=== PATIENT | male | born 1970 | race Caucasian/White ===

== ENCOUNTER 2019-08-28 15:24 | Emergency (ER) | payer OTHER ==
[~2019-08-28] VITALS: Ht 175.3 cm; Wt 100.0 kg
[~2019-08-28 15:24] MED LIST: ESCI10TA PO; PROP40TA7 PO
[2019-08-28 15:28] VITALS: BP 130/78
== END 2019-08-28 15:30 | disposition left against medical advice (07) ==
LOC: EMS 15:25
DX: F41.9 Anxiety disorder, unspecified (principal); Z53.21 Procedure and treatment not carried out due to patient leaving prior to being seen by health care provider